=== PATIENT | male | born 1945 | race American Indian/Alaskan Native ===

== ENCOUNTER 2019-06-05 13:56 | Emergency (ER) | payer OTHER ==
[~2019-06-05] VITALS: Ht 154.9 cm; Wt 59.0 kg
[2019-06-05 14:03] VITALS: TEMP 99
[2019-06-05 15:16] LABS: PLATELET COUNT 157 K/uL (142-355)
[2019-06-05 15:23] LABS: POTASSIUM 3.9 mmol/L (3.6-5.2)
[2019-06-05 16:17] VITALS: BP 122/75
== END 2019-06-05 17:00 | disposition short-term general hospital (02) ==
LOC: ED 13:56
PROVIDERS: Emergency Medicine
DX: J84.10 Pulmonary fibrosis, unspecified (principal); J18.9 Pneumonia, unspecified organism; R06.02 Shortness of breath
CPT/HCPCS: 36415; 80053; 81000; 82150; 83036; 83605; 83690; 83735; 83880; 85027; 87040; 87502; 94664; 96360; 96361; 96365; 96366; 99284; J0696; J3475